=== PATIENT | male | born 2000 | race Caucasian/White ===

== ENCOUNTER → 2020-03-24 | Outpatient (CLI) | payer OTHER ==
--- NOTE | 2020-03-24 16:26 | RAD ---
EXAM: Brain MRI without contrast. HISTORY: Action tremor. TECHNIQUE: Multiplanar, multisequence magnetic resonance imaging of the brain was performed without contrast. COMPARISON: None. FINDINGS: There is no restricted diffusion to suggest acute or subacute infarction. There is no susceptibility effect to suggest hemorrhage. There is no mass effect or midline shift. There is no hydrocephalus. No suspicious white matter lesion is seen. The orbits, paranasal sinuses mastoid air cells are unremarkable. There are normal flow voids within the cerebral vessels. There is no suspicious calvarial lesion. IMPRESSION: No acute intracranial finding. Electronically signed by: Brianda Alford MD (03/24/2020 4:23 PM) [id number]
== END | disposition home or self-care (01) ==
LOC: MRI 15:17
PROVIDERS: ATTEND Nurse Practitioner Family
DX: G25.2 Other specified forms of tremor (principal)
CPT/HCPCS: 70551